=== PATIENT | female | born 1990 | race Caucasian/White ===

== ENCOUNTER 2018-08-28 11:17 | Day surgery (SDC) | payer BC ==
[2018-08-28 12:11] VITALS: BP 123/70; TEMP 98.6; BMI 38.2
[2018-08-28] MEDS ORDERED: Acetaminophen 500 MG TAB PO SCH (12:45)
--- NOTE | 2018-08-28 14:19 | PRG ---
DATE OF SERVICE: 08/28/2018 PRIMARY OB: Dr. Gennaro Mendez. CHIEF COMPLAINT: Headache with a single elevated pressure in clinic. HISTORY OF PRESENT ILLNESS: The patient is a 27-year-old G3, P1 female with an intrauterine at 38 weeks and 6 days, who is presenting to Labor and Delivery after having an elevated pressure reported at 144/82 by the patient and mid 130s/82 by the nurse. The patient reports that she has been having a headache today, has not taken any [id number] medications. The patient does have a history of -related hypertension with her previous . The patient reports that she is finishing up a course of Macrobid for a recently diagnosed UTI. The patient denies any other recent illnesses, fever, fall, headache, chest pain, shortness of breath, nausea, vomiting. The patient does report she has had some diarrhea. Denies constipation. Denies any new rashes. Denies hip problems, knee problems, muscle weakness. Denies urinary urgency or frequency. Denies vaginal bleeding or leakage of fluid. PAST MEDICAL HISTORY: Negative. PAST SURGICAL HISTORY: D and C. SOCIAL HISTORY: Denies drug, alcohol, tobacco use. ALLERGIES: NO KNOWN DRUG ALLERGIES. MEDICATIONS: vitamins and Macrobid. OB LABS: Unavailable at the time of dictation. REVIEW OF SYSTEMS: Per HPI. PHYSICAL EXAMINATION: VITAL SIGNS: Blood pressure is 125/70, heart rate of 70, saturating 98% on room air, temperature 98.6. Over the last 2 hours, blood pressure has been monitored and her pressures have all been in the one teens to 120s over 60s and 70s. GENERAL: The patient appears to be in no acute distress. She is alert, oriented, cooperative, and pleasant to interact with. HEAD: Normocephalic and atraumatic. LUNGS: Clear to auscultation bilaterally. HEART: Regular rate and rhythm. ABDOMEN: Soft, gravid, nontender. EXTREMITIES: Nontender, nonedematous. DTRs are difficult to elicit. heart tracing shows the fetus with the baseline in the 130s with moderate long-term variability, positive accelerations, no decelerations. The uterus shows some irritability, but not felt by the patient. ASSESSMENT AND PLAN: The patient is a 27-year-old female with an intrauterine at 38 weeks and 6 days, who came with a mild headache. We have given her 1 g of Tylenol p.o. after initial evaluation. The patient's pressures have remained within normal limits and there are no other signs or concern. The patient is being discharged to home. She has instructions to follow up with her primary OB, Dr. Mendez, tomorrow as scheduled. Fetus has reactive NST and category 1 heart tracing. Job ID: [id number]
== END 2018-08-28 13:33 | disposition home or self-care (01) ==
LOC: L&D/OP 11:17
PROVIDERS: ATTEND Obstetrics & Gynecology
DX: O99.89 Other specified diseases and conditions complicating pregnancy, childbirth and the puerperium (principal); R51 Headache; R03.0 Elevated blood-pressure reading, without diagnosis of hypertension; R19.7 Diarrhea, unspecified; O23.43 Unspecified infection of urinary tract in pregnancy, third trimester; Z3A.38 38 weeks gestation of pregnancy; Z79.899 Other long term (current) drug therapy; Z79.2 Long term (current) use of antibiotics
CPT/HCPCS: 99283

== ENCOUNTER 2018-09-04 21:00 | Inpatient (IN) | payer BC ==
[~2018-09-04 21:00] MED LIST: Bupivacaine/Epinephrine 0.25% 30 ML VIAL ONE
[2018-09-04] MEDS ORDERED: Ibuprofen 800 MG TAB PO PRN (22:00)
[2018-09-04] MEDS ORDERED: Misoprostol 100 MCG TAB PO SCH (22:00)
[2018-09-04] MEDS ORDERED: Lidocaine 1% (PF) 30 ML VIAL SC PRN (22:00)
[2018-09-04] MEDS ORDERED: Ondansetron PF 4 MG/2 ML Vial IVP PRN (22:00)
[2018-09-04] MEDS ORDERED: Promethazine HCl 25 MG/ML VIAL IM PRN (22:00)
[2018-09-04] MEDS ORDERED: Butorphanol Tartrate 1 MG/ML VIAL SLOW IVP PRN (22:00)
[2018-09-04] MEDS ORDERED: NS w/ Oxytocin 10 units 500 ML IV SCH ×2 (22:00)
[2018-09-04] MEDS ORDERED: HYDROcodone/Acetaminophen 5/325 mg Tablet PO PRN ×2 (22:00)
[2018-09-04 22:09] VITALS: BMI 38.7
[2018-09-04] MEDS: Lactated Ringer's 1,000 ML IV SCH (22:19)
[2018-09-04 22:21] LABS: Hemoglobin 11.4 g/dL (12.0-16.0); Mean Corpuscular HGB CONC 33.8 g/dL (32.0-36.0); Mean Corpuscular Hemoglobin 29.8 pg (27.0-31.0); Mean Corpuscular Volume 87.9 fL (78.0-98.0); Mean Platelet Volume 7.5 fL (7.4-10.4); Platelet Count 327 thou/uL (130-400); RBC Distribution Width 12.6 % (11.5-14.5); Red Blood Cell (RBC) Count 3.85 mill/uL (4.20-5.40); White Blood Cell (WBC) Count 10.2 thou/uL (4.8-10.8)
[2018-09-04 23:02] LABS: HBSAg Index 0.21 S/CO (0-0.99); Hep B Surf Ag Non-Reactive S/CO (NonReactive); Syphilis Antibody Nonreactive (Nonreactive); Syphilis Antibody Index 0.04 S/CO (<1.00 Non-Reactive)
[2018-09-05] MEDS: Lactated Ringer's 1,000 ML IV SCH ×2 (01:34→06:15)
[2018-09-05] MEDS ORDERED: Fentanyl 4 mcg/Bup 0.1% Cadd 100 ML ONE (06:04)
[2018-09-05] MEDS ORDERED: Acetaminophen 325 MG TAB PO PRN (06:46)
[2018-09-05] MEDS ORDERED: Eucerin (Mineral Oil/Petrolatum,White) 30 gm Jar TOP PRN (06:46)
[2018-09-05] MEDS ORDERED: ePHEDrine/0.9% NaCl/PF SYRINGE 50 mg/10 ml SLOW IVP PRN (06:46)
[2018-09-05] MEDS ORDERED: Promethazine HCl 25 MG/ML VIAL IM PRN (06:46)
[2018-09-05] MEDS ORDERED: Ondansetron PF 4 MG/2 ML Vial IVP PRN ×2 (06:46→10:09)
[2018-09-05] MEDS ORDERED: Lactated Ringer's 500 ML IV PRN (06:46)
[2018-09-05] MEDS ORDERED: diphenhydrAMINE 50 MG/ML VIAL IVP PRN (06:46)
[2018-09-05] MEDS ORDERED: Naloxone HCl 0.4 mg/ml Vial IVP PRN ×2 (06:46)
[2018-09-05] MEDS ORDERED: Communication Order-Pharmacy FS SCH (07:00)
[2018-09-05] MEDS ORDERED: Fentanyl 4 mcg/Bupivacaine 0.1% Cassette 100 ML EPIDURAL SCH (07:00)
--- NOTE | 2018-09-05 08:10 | PDOC.OPDEL ---
OB Operative/Delivery Note Delivery Dr/Surgeon: Andrea Pre-Delivery Diagnosis: elective induction Procedure/Post Delivery Dx: spontaneous vaginal delivery Weeks gestation: 40 Anesthesia: epidural - Findings A Sex: female - 1 min: 8 - 5 min: 9 - Additional Findings/Plan Placenta delivered: spontaneous Estimated blood loss: 304ml QBL Post delivery plan: routine recovery
[2018-09-05] MEDS: NS / Oxytocin 40 units/1000ml 1,000 ML IV PRN ×2 (09:14→09:58)
[2018-09-05] MEDS ORDERED: Measles/Mumps/Rubella 10 MCG/0.5 ML VIAL SC ONE (10:09)
[2018-09-05] MEDS ORDERED: Milk Of Magnesia 30 ML UDCUP PO PRN (10:09)
[2018-09-05] MEDS ORDERED: Lanolin Ointment 7 GM TUBE TOP PRN (10:09)
[2018-09-05] MEDS ORDERED: diphenhydrAMINE 25 MG CAP PO PRN (10:09)
[2018-09-05] MEDS ORDERED: Adacel (T-DAP) 0.5 ML SYRINGE IM ONE (10:09)
[2018-09-05] MEDS ORDERED: NS / Oxytocin 40 units/1000ml 1,000 ML IV SCH (10:09)
[2018-09-05] MEDS ORDERED: HYDROcodone/Acetaminophen 5/325 mg Tablet PO PRN ×2 (10:09)
[2018-09-05] MEDS ORDERED: Benzocaine/Menthol 20-0.5% 60 ML CAN TOP PRN (10:09)
[2018-09-05] MEDS ORDERED: Preparation H Ointment 28 GM TUBE PR PRN (10:09)
[2018-09-05] MEDS ORDERED: Bisacodyl 10 MG SUPP PR PRN (10:09)
[2018-09-05] MEDS ORDERED: Docusate Calcium (SURFAK) 240 MG CAP PO SCH (10:45)
[2018-09-05] MEDS ORDERED: Prenatal Vitamin 1 TAB PO SCH (10:45)
[2018-09-05] MEDS: Ibuprofen 800 MG TAB PO SCH ×2 (14:48→21:14)
[2018-09-05] MEDS: Ferrous Sulfate 325 MG TAB PO SCH (16:50)
[2018-09-05] MEDS ORDERED: Sodium Chloride 0.9% 0 ML ONE (20:24)
[2018-09-05] MEDS: Docusate Calcium (SURFAK) 240 MG CAP PO SCH (21:14)
--- NOTE | 2018-09-06 03:44 | PDOC.PP ---
Post Progress Note Post Day #: 1 PO intake tolerated: yes Flatus: yes Ambulation: yes Vital Signs (12 hours) Temp Pulse Resp BP Pulse Ox 09/06/18 00:39 98.5 F 76 18 117/55 L 09/05/18 21:14 87 18 119/75 99 09/05/18 20:35 98.3 F 85 20 140/77 99 09/05/18 17:00 98.1 F 73 16 114/70 99 Weight Weight 102.512 kg - Physical Examination General: NAD Cardiovascular: no m/r/g, RRR Respiratory: clear to auscultation bilaterally, non-labored breathing Abdominal: + bowel sounds, lochia (minimal), no distention Fundus firm & at: umbilicus Neurological: no gross focal deficits Psychiatric: A&Ox3 Result Diagrams: 09/06/18 05:05 Additional Labs: Post Labs Blood Type A POSITIVE 09/04/18 22:13 Hep Bs Antigen Non-Reactive S/CO (NonReactive) 09/04/18 22:13 (1) (spontaneous vaginal delivery) Code(s): O80 - ENCOUNTER FOR FULL-TERM UNCOMPLICATED DELIVERY Status: Acute - Assessment/Plan 27 year old delivered TAGA infant at 40 wks Term , delivered - Routine PP care - No concerns, well - Minimal lochia - VSS - F/U [address] [facility] - No complications - See above Dispo: Stable. D/c home today.
[2018-09-06 05:47] LABS: Hemoglobin 10.2 g/dL (12.0-16.0); Mean Corpuscular HGB CONC 33.9 g/dL (32.0-36.0); Mean Corpuscular Hemoglobin 30.2 pg (27.0-31.0); Mean Platelet Volume 7.5 fL (7.4-10.4); Platelet Count 286 thou/uL (130-400); RBC Distribution Width 12.7 % (11.5-14.5); Red Blood Cell (RBC) Count 3.37 mill/uL (4.20-5.40); White Blood Cell (WBC) Count 11.5 thou/uL (4.8-10.8)
[2018-09-06] MEDS: Ibuprofen 800 MG TAB PO SCH ×2 (05:48→14:59)
[2018-09-06] MEDS: Ferrous Sulfate 325 MG TAB PO SCH ×2 (07:20→17:44)
[2018-09-06 08:49] VITALS: BP 103/63; TEMP 98
[2018-09-06] MEDS ORDERED: Prenatal Vitamin 1 TAB PO SCH (09:00)
[2018-09-06] MEDS: Docusate Calcium (SURFAK) 240 MG CAP PO SCH (09:03)
== END 2018-09-06 18:15 | disposition home or self-care (01) | DRG 807 ==
LOC: L&D 21:13 → 3SW 09-05 10:41
PROVIDERS: ADMIT Obstetrics & Gynecology; ATTEND Obstetrics & Gynecology
PROC: 10E0XZZ Delivery of Products of Conception, External Approach (ICD-10-PCS; principal; 2018-09-05)
PROC: 10907ZC Drainage of Amniotic Fluid, Therapeutic from Products of Conception, Via Natural or Artificial Opening (ICD-10-PCS; 2018-09-05)
PROC: 3E033VJ Introduction of Other Hormone into Peripheral Vein, Percutaneous Approach (ICD-10-PCS; 2018-09-05)
DX: O69.81X0 Labor and delivery complicated by cord around neck, without compression, not applicable or unspecified (principal); Z37.0 Single live birth; Z3A.39 39 weeks gestation of pregnancy; O76 Abnormality in fetal heart rate and rhythm complicating labor and delivery
CPT/HCPCS: 36415; 51702; 85027; 86780; 86850; 86900; 86901; 87340; 90707; J0595; J2001

== ENCOUNTER 2018-12-23 21:52 | Emergency (ER) | payer BC ==
[2018-12-23 22:15] LABS: #Basophils 0.1 thou/uL (0.0-0.2); #Eosinphils 0.4 thou/uL (0.0-0.7); #Lymphocytes 2.8 thou/uL (1.20-3.40); #Monocytes 0.4 thou/uL (0.11-0.59); #Neutrophils 3.4 thou/uL (1.40-6.50); %Basophils 0.8 % (0.0-1.0); %Eosinophils 5.7 % (0.0-10.0); %Lymphocytes 39.6 % (21.0-51.0); %Monocytes 6.1 % (0.0-10.0); %Neutrophils 47.7 % (42.0-75.0); Hemoglobin 11.6 g/dL (12.0-16.0); Mean Corpuscular HGB CONC 34.1 g/dL (32.0-36.0); Mean Corpuscular Hemoglobin 29.4 pg (27.0-31.0); Mean Corpuscular Volume 86.4 fL (78.0-98.0); Mean Platelet Volume 7.7 fL (7.4-10.4); Platelet Count 319 thou/uL (130-400); RBC Distribution Width 12.2 % (11.5-14.5); Red Blood Cell (RBC) Count 3.94 mill/uL (4.20-5.40); White Blood Cell (WBC) Count 7.1 thou/uL (4.8-10.8)
[2018-12-23 22:32] LABS: ALT (SGPT) 23 U/L (8-55); AST (SGOT) 13 U/L (5-34); Albumin 4.3 g/dL (3.5-5.0); Alkaline Phosphatase 70 U/L (40-150); Anion Gap 10 mmol/L (10-20); BUN (Urea Nitrogen) 13 mg/dL (7.0-18.7); Bilirubin, Total 0.6 mg/dL (0.2-1.2); CK (CPK) 84 U/L (29-168); Calc. Creatinine Clearance 0 mL/min (70-130); Calcium 9.4 mg/dL (7.8-10.44); Carbon Dioxide 24 mmol/L (22-29); Chloride 108 mmol/L (98-107); Estimated GFR-MDRD 82; Globulin 3.1 g/dL (2.4-3.5); Glucose 95 mg/dL (70-105); Potassium 3.6 mmol/L (3.5-5.1); Protein, Total 7.4 g/dL (6.0-8.3); Sodium 138 mmol/L (136-145)
[2018-12-23 22:35] LABS: Bilirubin Negative (Negative); Blood, Urine Large (Negative); Clarity CLEAR (Clear); Glucose, Urine (Dipstick) Negative (Negative); Leukocyte Negative (Negative); Nitrite Negative (Negative); Protein, Urine (Dipstick) Negative (Neg-Trace); Specific Gravity, Urine 1.011 (1.002-1.036); Urobilinogen 0.2 mg/dL (0.2-1.0); pH, Urine 5.5 (5.0-9.0)
[2018-12-23 22:36] LABS: Pregnancy Test - Urine (BHCG) Negative (Negative); Pregu Control Background? CLEAR/WHITE (CLR/WHITE); Pregu Control Bar Appear? YES (CONTROL BAR); Specific Gravity 1.011 (1.002-1.036)
[2018-12-23 22:37] LABS: Bacteria/HPF None Seen HPF (None Seen); Hyaline Casts/LPF 0-3 HYALINE CAST LPF (0-3 Hyaline); Pathc Cast-AUWi Flag 0.13 (0-2.49); RBC/HPF GREATER THAN 50-TNTC HPF (0-3); Squamous Epithelial 0-3 HPF (0-3); WBC/HPF 0-3 HPF (0-3)
--- NOTE | 2018-12-27 11:09 | EKG ---
Test Reason : Blood Pressure : / mmHG Vent. Rate : 052 BPM Atrial Rate : 052 BPM P-R Int : 160 ms QRS Dur : 086 ms QT Int : 468 ms P-R-T Axes : 023 012 050 degrees QTc Int : 435 ms Sinus bradycardia with marked sinus arrhythmia Nonspecific T wave abnormality Abnormal ECG Confirmed by HEBERT HARDIN M.D. ([id number]), rewrite editor MARIBELL FORD ([id number]) on 12/27/2018 11:08:48 AM Referred By: Confirmed By:HEBERT HARDIN M.D.
--- NOTE | 2018-12-27 11:09 | EKG ---
Test Reason : CHEST PAIN Blood Pressure : / mmHG Vent. Rate : 053 BPM Atrial Rate : 053 BPM P-R Int : 154 ms QRS Dur : 092 ms QT Int : 478 ms P-R-T Axes : 018 010 052 degrees QTc Int : 448 ms Sinus bradycardia with sinus arrhythmia Otherwise normal ECG Confirmed by HEBERT HARDIN M.D. ([id number]), editor news MARIBELL FORD ([id number]) on 12/27/2018 11:08:50 AM Referred By: LASHAWN Confirmed By:HEBERT HARDIN M.D.
== END 2018-12-23 23:52 | disposition home or self-care (01) ==
LOC: ERS 21:52
DX: R07.89 Other chest pain (principal)
CPT/HCPCS: 36415; 80053; 81003; 81015; 81025; 82550; 84484; 85025; 85379; 93005

== ENCOUNTER 2020-03-07 08:13 | Outpatient (CLI) | payer BC ==
--- NOTE | 2020-03-07 08:38 | RAD ---
XR Chest Pa Lat STANDARD HISTORY: Cough COMPARISON: None FINDINGS: The heart size is normal. The lungs are well expanded without focal areas of consolidation, pneumothorax or pleural effusions. IMPRESSION: No radiographic evidence of acute cardiopulmonary process.
[2020-03-07 10:34] LABS: #Eosinphils 0.2 thou/uL (0.0-0.7); #Lymphocytes 2.3 thou/uL (1.20-3.40); #Monocytes 0.4 thou/uL (0.11-0.59); #Neutrophils 3.1 thou/uL (1.40-6.50); %Basophils 0.5 % (0.0-1.0); %Eosinophils 3.6 % (0.0-10.0); %Lymphocytes 37.9 % (21.0-51.0); %Monocytes 6.9 % (0.0-10.0); %Neutrophils 51.2 % (42.0-75.0); Mean Corpuscular HGB CONC 33.1 g/dL (32.0-36.0); Mean Corpuscular Hemoglobin 28.8 pg (27.0-31.0); Mean Platelet Volume 7.4 fL (7.4-10.4); Platelet Count 401 thou/uL (130-400); RBC Distribution Width 11.5 % (11.5-14.5); White Blood Cell (WBC) Count 6.1 thou/uL (4.8-10.8)
[2020-03-07 11:04] LABS: Hemoglobin A1c 5.3 % (4.0-6.0)
[2020-03-07 11:16] LABS: Bilirubin Negative (Negative); Blood, Urine Negative (Negative); Clarity Clear (Clear); Glucose, Urine (Dipstick) Normal (Negative); Ketone, Urine Negative (Negative); Leukocyte Negative Leu/uL (Negative); Nitrite Negative (Negative); Protein, Urine (Dipstick) Negative (Neg-Trace); Specific Gravity, Urine 1.025 (1.002-1.036); Urobilinogen Normal mg/dL (Less than 2)
[2020-03-07 12:05] LABS: ALT (SGPT) 24 U/L (8-55); AST (SGOT) 18 U/L (5-34); Albumin 4.5 g/dL (3.5-5.0); Alkaline Phosphatase 73 U/L (40-110); Anion Gap 14 mmol/L (10-20); BUN (Urea Nitrogen) 13 mg/dL (7.0-18.7); Bilirubin, Total 0.5 mg/dL (0.2-1.2); Calc. Creatinine Clearance 0 mL/min (70-130); Calcium 9.3 mg/dL (7.8-10.44); Carbon Dioxide 22 mmol/L (22-29); Cardiac Risk 3.3 (Less than 4.5); Chloride 104 mmol/L (98-107); Cholesterol 143 mg/dl (< 200 Desired); Estimated GFR-MDRD 72; Globulin 3.2 g/dL (2.4-3.5); Glucose 85 mg/dL (70-105); HDL Cholesterol 43 mg/dL (>60 Neg Risk); LDL Cholesterol, Calculated 80 mg/dL; Potassium 4.3 mmol/L (3.5-5.1); Protein, Total 7.7 g/dL (6.0-8.3); Sodium 136 mmol/L (136-145); Triglycerides 100 mg/dL (Less than 150)
[2020-03-07 12:10] LABS: Free T4 (Free Thyroxine) 1.01 ng/dL (0.70-1.48); Thyroid Stimulating Hormone 4.6922 uIU/mL (0.35-4.94)
== END 2020-03-07 08:14 | disposition home or self-care (01) ==
LOC: SCSRAD 08:13
PROVIDERS: ATTEND Family Medicine
DX: Z00.00 Encounter for general adult medical examination without abnormal findings (principal); R05 Cough
CPT/HCPCS: 36415; 71046; 80053; 80061; 81003; 83036; 84439; 84443; 85025

== ENCOUNTER 2020-12-14 11:57 | Outpatient (CLI) | payer BC ==
[2020-12-14 14:37] LABS: #Eosinphils 0.2 thou/uL (0.0-0.7); #Lymphocytes 2.3 thou/uL (1.20-3.40); #Monocytes 0.3 thou/uL (0.11-0.59); #Neutrophils 2.4 thou/uL (1.40-6.50); %Basophils 0.3 % (0.0-1.0); %Eosinophils 4.3 % (0.0-10.0); %Lymphocytes 43.5 % (21.0-51.0); %Monocytes 6.2 % (0.0-10.0); %Neutrophils 45.6 % (42.0-75.0); Hemoglobin 12.2 g/dL (12.0-16.0); Mean Corpuscular HGB CONC 31.9 g/dL (32.0-36.0); Mean Corpuscular Hemoglobin 28.3 pg (27.0-31.0); Mean Corpuscular Volume 88.5 fL (78.0-98.0); Mean Platelet Volume 7.6 fL (7.4-10.4); Platelet Count 391 thou/uL (130-400); RBC Distribution Width 12.5 % (11.5-14.5); Red Blood Cell (RBC) Count 4.33 mill/uL (4.20-5.40); White Blood Cell (WBC) Count 5.2 thou/uL (4.8-10.8)
[2020-12-14 15:07] LABS: ALT (SGPT) 20 U/L (8-55); AST (SGOT) 18 U/L (5-34); Albumin 4.1 g/dL (3.5-5.0); Alkaline Phosphatase 68 U/L (40-110); Anion Gap 12 mmol/L (10-20); BUN (Urea Nitrogen) 9 mg/dL (7.0-18.7); Calc. Creatinine Clearance 0 mL/min (70-130); Calcium 8.8 mg/dL (7.8-10.44); Carbon Dioxide 22 mmol/L (22-29); Chloride 107 mmol/L (98-107); Globulin 3.1 g/dL (2.4-3.5); Glucose 86 mg/dL (70-105); Potassium 4.1 mmol/L (3.5-5.1); Protein, Total 7.2 g/dL (6.0-8.3); Sodium 137 mmol/L (136-145)
== END 2020-12-14 11:58 | disposition home or self-care (01) ==
LOC: SCSRAD 11:57
PROVIDERS: ATTEND Family Medicine
DX: J12.82 Pneumonia due to coronavirus disease 2019 (principal)
CPT/HCPCS: 36415; 71046; 80053; 85025

== ENCOUNTER 2021-09-18 07:35 | Emergency (ER) | payer OTHER ==
[2021-09-18] MEDS ORDERED: Dexamethasone 10 MG/ML VIAL ONE (07:49)
[2021-09-18 20:43] LABS: SARS-CoV-2 PCR by NAA Not Detected (NotDetected)
== END 2021-09-18 09:35 | disposition home or self-care (01) ==
LOC: ERS 07:35
DX: J02.9 Acute pharyngitis, unspecified (principal); J45.909 Unspecified asthma, uncomplicated; Z20.822 Contact with and (suspected) exposure to COVID-19
CPT/HCPCS: 71045; 96372; J1100; U0003; U0005

== ENCOUNTER 2022-03-26 13:18 | Outpatient (CLI) | payer OTHER | END 2022-03-26 13:19 | disposition home or self-care (01) | LOC: DTY/OP 13:18 | PROVIDERS: ATTEND Family Medicine | DX: E66.01 Morbid (severe) obesity due to excess calories (principal); Z68.39 Body mass index [BMI] 39.0-39.9, adult | CPT/HCPCS: 97802 ==

== ENCOUNTER 2025-04-22 14:09 | Outpatient (CLI) | payer BC | END 2025-04-22 14:10 | disposition home or self-care (01) | LOC: BICMRI 14:09 | PROVIDERS: ATTEND Orthopaedic Surgery | DX: S76.011A Strain of muscle, fascia and tendon of right hip, initial encounter (principal) ==